=== PATIENT | male | born 1955 | race Caucasian/White ===

== ENCOUNTER → 2020-04-06 11:26 | Outpatient (CLI) | payer MEDICARE, OTHER, SELFPAY ==
[2020-04-06 22:51] LABS: SARS-CoV-2 RNA PCR Negative
== END ==
PROVIDERS: PCP Family Medicine; Visit Provider Family Medicine
DX: Z20.822 Contact with and (suspected) exposure to COVID-19 (principal); R51.9 Headache, unspecified
CPT/HCPCS: C9803; U0003; U0005